=== PATIENT | male | born 1980 | race Caucasian/White ===

== ENCOUNTER 2016-09-19 19:49 | Emergency (ER) | END 2016-09-19 20:50 | disposition left against medical advice (07) | LOC: ER 19:49 | DX: Z53.9 Procedure and treatment not carried out, unspecified reason (principal); R10.9 Unspecified abdominal pain ==

== ENCOUNTER 2019-02-13 01:16 | Emergency (ER) | payer SELFPAY ==
[2019-02-13] MEDS ORDERED: RINGERS SOLUTION,LACTATED 1,000 ML IV ONE ×2 (02:02→02:10)
[2019-02-13] MEDS ORDERED: DIPHENHYDRAMINE HCL 50 MG/ML VIAL IV ONE (02:02)
[2019-02-13] MEDS ORDERED: IBUPROFEN 800 MG TABLET PO ONE (02:02)
[2019-02-13 02:36] LABS: HEMATOCRIT 40.5 % (37.9-51.0); HEMOGLOBIN 13.7 g/dL (13.5-17.0); MEAN CORPUSCULAR HEMOGLOBIN 30.7 pg (27.0-33.4); MEAN CORPUSCULAR HGB CONC 33.8 g/dL (32.0-36.0); MEAN CORPUSCULAR VOLUME 91 fl (80-97); PLATELET COUNT 198 10^3/uL (150-450); RED BLOOD COUNT 4.45 10^6/uL (4.35-5.55); RED CELL DISTRIBUTION WIDTH 14.9 % (11.5-14.0); WHITE BLOOD COUNT 9.3 10^3/uL (4.0-10.5)
[2019-02-13 02:46] LABS: ALANINE AMINOTRANSFERASE 83 U/L (21-72); ALBUMIN 3.1 g/dL (3.5-5.0); ALKALINE PHOSPHATASE 57 U/L (38-126); ANION GAP 12 (5-19); ASPARTATE AMINO TRANSFERASE 74 U/L (17-59); BILIRUBIN,DIRECT 1.3 mg/dL (0.0-0.4); BILIRUBIN,TOTAL 1.8 mg/dL (0.2-1.3); BLOOD UREA NITROGEN 17 mg/dL (7-20); CALCIUM 8.4 mg/dL (8.4-10.2); CARBON DIOXIDE 21 mmol/L (22-30); CHLORIDE 108 mmol/L (98-107); CREATINE KINASE 403 U/L (55-170); GLUCOSE 147 mg/dL (75-110); POTASSIUM 3.8 mmol/L (3.6-5.0); TOTAL PROTEIN 5.6 g/dL (6.3-8.2)
[2019-02-13 03:07] LABS: ABSOLUTE LYMPHOCYTES# (MANUAL) 0.3 10^3/uL (0.5-4.7); ABSOLUTE MONOCYTES # (MANUAL) 0.3 10^3/uL (0.1-1.4); ABSOLUTE NEUTROPHILS# (MANUAL) 8.6 10^3/uL (1.7-8.2); BAND NEUTROPHILS % (MANUAL) 5 % (3-5); BASOPHILS % (MANUAL) 1 % (0-2); EOSINOPHILS % (MANUAL) 0 % (0-6); LYMPHOCYTES % (MANUAL) 3 % (13-45); MONOCYTES % (MANUAL) 3 % (3-13); SEGMENTED NEUTROPHILS % (MAN) 88 % (42-78); TOTAL CELLS COUNTED 100
[2019-02-13 03:08] LABS: PLATELET COMMENT ADEQUATE; RBC MORPHOLOGY COMMENT NORMO-CYTIC/CHROMIC
[2019-02-13 04:16] LABS: LIPASE 101.6 U/L (23-300)
--- NOTE | 2019-02-13 05:03 | RADIOLOGY REPORT (SQ) ---
EXAM DESCRIPTION: US ABDOMEN LIMITED COMPLETED DATE/TME: 02/13/2019 03:42 CLINICAL HISTORY: 38 years, Male, RUQ COMPARISON: None. TECHNIQUE: Limited right upper quadrant ultrasound LIMITATIONS: None. FINDINGS: The liver is homogenous in echotexture without focal lesion. No gallstones or gallbladder wall thickening. CBD measures 2.7 mm. Visualized pancreas, abdominal aorta, inferior vena cava, right kidney unremarkable. No ascites IMPRESSION: Negative exam copyright 2010 [employer]- All Rights Reserved
--- NOTE | 2019-02-13 07:39 | ER Document Report ---
ED General - General TRAVEL OUTSIDE OF THE [place] IN LAST 30 DAYS: No <HUMPHREY SUERO - Last Filed: 02/13/19 08:19> <WILLIE TEJADA - Last Filed: 02/13/19 10:59> - General Chief Complaint: Tremor Stated Complaint: POSSIBLE DRY MOUTH Time Seen by Provider: 02/13/19 02:01 Notes: Patient is a 38-year-old male presents to the emergency department via EMS for a "dry mouth and muscle twitching." According to EMS report patient was initially very uncooperative and having intermittent muscle spasms. 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 Patient admits to a past abuse of drugs but denies any current abuse of illicit drugs. Patient is denying any complaints at this time. States initially he had some muscle tremors but is denying any of that currently. States he was working outside all day. States he got home, took a shower and after that he felt very cold. States after feeling cold he noticed that bilateral lower extremity started twitching. Patient states he feels very anxious because he is unsure of what is going on. Pts eyes a blinking very fast and he continues to lick his lips and twist his head to the left. Pt. is tachycardic and hypotensive. Medications: Cialis for which patient states he has not taken it in "a couple of weeks", Testosterone, Trenbolone. (HUMPHREY SUERO) - Related Data Allergies/Adverse Reactions: No Known Allergies Allergy (Unverified 02/13/19 06:43) Past Medical History - General Information source: Patient - Social History Smoking Status: Current Every Day Smoker Chew tobacco use (# tins/day): No Frequency of alcohol use: Occasional Drug Abuse: Other Family History: Reviewed & Not Pertinent Patient has suicidal ideation: No Patient has homicidal ideation: No Renal/ Medical History: Denies: Hx Peritoneal Dialysis <HUMPHREY SUERO - Last Filed: 02/13/19 08:19> Review of Systems - Review of Systems Constitutional: Chills EENT: No symptoms reported Cardiovascular: denies: Chest pain, Dyspnea, Dizziness Respiratory: No symptoms reported Gastrointestinal: No symptoms reported Genitourinary: No symptoms reported Male Genitourinary: No symptoms reported Musculoskeletal: See HPI Skin: No symptoms reported Hematologic/Lymphatic: No symptoms reported Neurological/Psychological: See HPI <SANDRAMELLY WILSONCORWIN - Last Filed: 02/13/19 08:19> Physical Exam <HUMPHREY SUERO - Last Filed: 02/13/19 08:19> - Vital signs Vitals: Temp Pulse Resp BP Pulse Ox 100.2 F 138 H 20 92/64 L 95 02/13/19 01:34 02/13/19 01:34 02/13/19 01:34 02/13/19 01:34 02/13/19 01:34 - Notes Notes: GENERAL: Alert, interacts well. [place] lips, blinking a lot, turning his head to the left. HEAD: Normocephalic, atraumatic. EYES: Pupils equal, round, and reactive to light. Extraocular movements intact. ENT: Oral mucosa moist, tongue midline. NECK: Full range of motion. Supple. Trachea midline. No nuchal rigidity noted LUNGS: Clear to auscultation bilaterally, no wheezes, rales, or rhonchi. No respiratory distress. HEART: Tachycardic rate and rhythm. No murmur ABDOMEN: Soft, non-tender. Non-distended. Bowel sounds present in all 4 quadrants. No McBurney's point tenderness, no Robles sign noted EXTREMITIES: Moves all 4 extremities spontaneously. No edema, normal radial and dorsalis pedis pulses bilaterally. No cyanosis. 5 out of 5 strength all 4 ex tremities BACK: no cervical, thoracic, lumbar midline tenderness. No saddle anesthesia, normal distal neurovascular exam. NEUROLOGICAL: Alert and oriented x3. Normal speech. cranial nerves II through XII grossly intact PSYCH: Normal affect, normal mood. SKIN: Warm, diaphoretic, normal turgor, flushed. No rashes or lesions noted. (HUMPHREY SUERO) Course - Laboratory Result Diagrams: 02/13/19 02:20 02/13/19 02:20 <SRITAYLORRUBENSANYACORWIN - Last Filed: 02/13/19 08:19> - Laboratory Result Diagrams: 02/13/19 02:20 02/13/19 02:20 <WILLIE TEJADA - Last Filed: 02/13/19 10:59> - Re-evaluation Re-evalutation: 02/13/19 07:44 nurse now brings EMS report to my attention, which shows patient to be febrile initially. States she "just found it in her paperwork." EMS reports a fever of 101.5 for which they gave 975 mg of Tylenol. EMS also states that they found two pipes with an unknown substance in them in the patient's bathroom with him. blood cultures, chest x-ray, lactic acid now ordered. Patient continues to be FRANK x4. He continues to refuse to give a urine sample. 02/13/19 08:19 Pt. continues to be conscious alert and oriented x4. He does appear to be sleeping but is easily arousable with verbal stimuli. Has been afebrile, is no longer tachycardic or hypotensive after fluid administration in the emergency room. Patient care and report transferred to Willie Tejada PA-C for continued lab evaluation and hopeful discharge. (HUMPHREY SUERO) 02/13/19 09:17 This is Ronald Tejada physician employment assistant I have assumed care of patient Brodie Gay from shift superintendent APC Jay Suero. I have gone in and examined patient currently is resting comfortably. He is arousable and answers questions appropriately. I was informed that when he came in patient had some lipsmacking eye blinking type of reactions. It was reported by patient that he had been out in the sun all day and believe that he had muscle twitching because of getting overheated. Patient reports using steroids and self injection in the arms. The refore track carrasquillo were seen. Patient had been here quite a while and had been refusing to give a urine up until this morning. He is finally turned urine in which is very dark in color and we are awaiting the results of that. It was noted later on after the EMS run she was found the patient on presentation to EMS had a temp of 101.5. Given that new information the provider went ahead and did a septic work-up and we are still waiting on those labs to come back. Thus far patient is received 2 L of fluid and as stated has just urinated a few minutes ago. He denies any narcotic abuse. He was given Benadryl for the tics and that seems to relieve the that problem. He is somewhat tired but he is again is alert and oriented and answering questions appropriately. We will continue to monitor the return of the labs as well as patient's condition and further intervention will be used as appropriate. 02/13/19 10:54 Patient's course of stay in the emergency room is been relatively uneventful. His lactic acid came back at 1.1 his urine came back showing that he had a high level of amphetamines. He has responded well to the Benadryl and fluid challenges. His meld keep things down. He is not have any more cramps in his legs and at this point I feel he is safe to be discharged home. I have gone in and talk to patient [id number] about the amphetamines causing the takes that he had along with dehydration. He voices understanding says he will not do it again. I told him his plan with a loaded tach with the amphetamines and the steroids both can cause major problems essentially should really consult with his physician about the steroids as well as use of amphetamines. (WILLIE TEJADA) - Vital Signs Vital signs: Temp Pulse Resp BP Pulse Ox 98.9 F 96 18 110/59 L 100 02/13/19 02:00 02/13/19 07:44 02/13/19 08:00 02/13/19 07:44 02/13/19 08:09 - Laboratory Laboratory results interpreted by me: 02/13/19 02/13/19 02/13/19 02:20 02:20 08:34 RDW 14.9 H Seg Neuts % (Manual) 88 H Lymphocytes % (Manual) 3 L Abs Neuts (Manual) 8.6 H Abs Lymphs (Manual) 0.3 L Chloride 108 H Carbon Dioxide 21 L Creatinine 1.66 H Est GFR ( Amer) 56 L Est GFR (Non-Af Amer) 46 L Glucose 147 H Total Bilirubin 1.8 H Direct Bilirubin 1.3 H AST 74 H ALT 83 H Creatine Kinase 403 H Total Protein 5.6 L Albumin 3.1 L Urine Protein 30 H Urine Ketones TRACE H Urine Bilirubin SMALL H Urine Urobilinogen 4.0 H Discharge <HUMPHREY SUERO - Last Filed: 02/13/19 08:19> <WILLIE TEJADA - Last Filed: 02/13/19 10:59> - Discharge Clinical Impression: Dehydration, Amphetamine abuse Condition: Stable Disposition: HOME, SELF-CARE Instructions: Dehydration ([facility]), Ampetamine Abuse ([facility]) Additional Instructions: As we discussed you need to keep yourself hydrated well. Use of amphetamines because those takes that she became and displaying along with the cramping in the legs with the dehydration. There is no telling the combination of things that are mixed with the amphetamines. Also it is [place] with drugs. Highly important that you avoid any type of amphetamines at all. You had a negative reaction to them this time and survived so please avoid them at all cost. While out side in the sun and keep yourself hydrated well. Do not drink just water drink Gatorade and those things with mineral supplements in them. Should you have any concerns or problems he can return to ER for recheck. Forms: Smoking Cessation Education Referrals: [facility] [NO [facility]AL MD] - Follow up as needed
--- NOTE | 2019-02-13 08:41 | RADIOLOGY REPORT (SQ) ---
EXAM DESCRIPTION: CHEST 2 VIEWS COMPLETED DATE/TIME: 02/13/2019 7:58 am REASON FOR STUDY: SOB COMPARISON: None. TECHNIQUE: Frontal and lateral radiographic views of the chest acquired. NUMBER OF VIEWS: Two view. LIMITATIONS: None. FINDINGS: LUNGS AND PLEURA: No opacities, masses or pneumothorax. No pleural effusion. MEDIASTINUM AND HILAR STRUCTURES: No masses or contour abnormalities. HEART AND VASCULAR STRUCTURES: Heart normal size. No evidence for failure. BONES: No acute findings. HARDWARE: None in the chest. OTHER: No other significant finding. IMPRESSION: NO SIGNIFICANT RADIOGRAPHIC FINDING IN THE CHEST. TECHNICAL DOCUMENTATION: JOB ID: [id number] [employer]- All Rights Reserved Reading location - IP/workstation name: [email or web address]
[2019-02-13 09:35] LABS: APPEARANCE,URINE SLIGHTLY-CLOUDY; BILIRUBIN,URINE SMALL (NEGATIVE); COLOR,URINE AMBER; GLUCOSE, URINE NEGATIVE (NEGATIVE); KETONES,URINE TRACE mg/dL (NEGATIVE); LEUKOCYTE ESTERASE,URINE NEGATIVE (NEGATIVE); NITRITE,URINE NEGATIVE (NEGATIVE); PROTEIN,URINE 30 mg/dL (NEGATIVE); URINE SPECIFIC GRAVITY 1.028
[2019-02-13 09:45] LABS: URINE BARBITURATES SCREEN NEGATIVE; URINE BENZODIAZEPINES SCREEN NEGATIVE; URINE COCAINE SCREEN NEGATIVE; URINE MARIJUANA (THC) SCREEN NEGATIVE; URINE METHADONE SCREEN NEGATIVE; URINE PHENCYCLIDINE SCREEN NEGATIVE
[2019-02-13 11:47] VITALS: BP 112/75
== END 2019-02-13 11:20 | disposition home or self-care (01) ==
LOC: ER 01:16
DX: E86.0 Dehydration (principal); F15.10 Other stimulant abuse, uncomplicated; R50.9 Fever, unspecified; R00.0 Tachycardia, unspecified; F17.200 Nicotine dependence, unspecified, uncomplicated; Z79.899 Other long term (current) drug therapy; Z79.52 Long term (current) use of systemic steroids
CPT/HCPCS: 99284; 96361; 96374; 36415; 87040; 80307 ×2; 82550; 83605; 83690; 85025; 87077; 80053; 81001; 71046; 76705; J1200; J7120